=== PATIENT | male | born 1950 | race Caucasian/White ===

== ENCOUNTER 2017-06-05 04:24 | Observation (INO) | payer OTHER ==
[~2017-06-05] VITALS: Ht 177.8 cm; Wt 82.8 kg
[2017-06-05 04:28] VITALS: Ht 177.8 cm; Wt 82.8 kg
[2017-06-05 05:27] LABS: BASOPHIL % 0.4 % (0-2); PLATELET COUNT 150 x10^3mcL (130-400); RED CELL DISTRIBUTION WIDTH 13.1 % (11.5-14.5)
[2017-06-05 05:35] LABS: CALCIUM 8.4 mg/dL (8.5-10.1); CHLORIDE SERUM 107 mmol/L (98-107); GFR1 > 60 mL/min; GLUCOSE SERUM 112 mg/dL (74-106); POTASSIUM SERUM 3.9 mmol/L (3.5-5.1); SODIUM SERUM 143 mmol/L (136-145)
[2017-06-05 05:40] LABS: ALBUMIN 3.4 g/dL (3.4-5.0); ALKALINE PHOSPHATASE 43 U/L (46-116); ALT/SGPT 22 U/L (16-63); AST/SGOT 15 U/L (15-37); BILIRUBIN TOTAL 0.48 mg/dL (0.20-1.00); HDL CHOLESTEROL 48 mg/dL (40-60); TOTAL PROTEIN, SERUM 6.7 g/dL (6.4-8.2)
[2017-06-05 05:43] LABS: CHOLESTEROL 202 mg/dL (<200)
[2017-06-05 08:31] LABS: CHOLESTEROL/HDL RATIO 4.4; PHOSPHOROUS 2.8 mg/dL (2.5-4.9)
[2017-06-05 08:55] VITALS: BP 118/67
[2017-06-05 09:55] VITALS: BP 123/77
[2017-06-05 13:40] LABS: microscopic required? NO
[2017-06-05 13:58] VITALS: BP 130/78
[2017-06-05 13:59] LABS: urine erythrocyte NEGATIVE (NEGATIVE)
[2017-06-05 14:31] LABS: AMPHETAMINE QUAL UR NONE DETECTED (NEG <=1000)
[2017-06-05 16:38] VITALS: BP 133/83
[2017-06-05 21:09] VITALS: BP 117/70
[2017-06-06 05:46] VITALS: BP 128/76
[2017-06-06 07:14] LABS: CALCIUM 8.4 mg/dL (8.5-10.1); CHLORIDE SERUM 106 mmol/L (98-107); GFR1 > 60 mL/min; GLUCOSE SERUM 101 mg/dL (74-106); MAGNESIUM 2.1 mg/dL (1.8-2.4); PHOSPHOROUS 2.7 mg/dL (2.5-4.9); POTASSIUM SERUM 4.4 mmol/L (3.5-5.1); SODIUM SERUM 141 mmol/L (136-145)
[2017-06-06 07:33] LABS: BASOPHIL % 0.3 % (0-2); PLATELET COUNT 144 x10^3mcL (130-400); RED CELL DISTRIBUTION WIDTH 13.2 % (11.5-14.5)
[2017-06-06 09:34] VITALS: BP 126/72
[2017-06-06 12:48] VITALS: BP 126/72
[2017-06-06 12:55] VITALS: BP 134/78
== END 2017-06-06 13:24 | disposition home or self-care (01) | DRG 312 ==
LOC: ED 04:24 → DU 06:35
PROVIDERS: Emergency Medicine; Family Medicine
DX: R55 Syncope and collapse (principal); R73.03 Prediabetes; E66.3 Overweight; Z68.26 Body mass index [BMI] 26.0-26.9, adult
CPT/HCPCS: 82962; 83880; 85378; G0378; J7030; Q0092